=== PATIENT | female | born 1930 | race Two or more races ===

== ENCOUNTER 2019-12-16 09:01 | Emergency (ER) | payer OTHER ==
[~2019-12-16] VITALS: Ht 182.9 cm; Wt 60.3 kg
[2019-12-16] MEDS ORDERED: ATORVASTATIN CA40 MG (09:27)
[2019-12-16] MEDS ORDERED: LOTREL 10-40 M1 EACH (09:27)
[2019-12-16] MEDS ORDERED: HYDROCHLOROTH12.5 MG (09:29)
[2019-12-16] MEDS ORDERED: SYNTHROID50 MCG (09:29)
== END 2019-12-16 13:03 | disposition home or self-care (01) ==
LOC: ER 09:01
DX: K21.9 Gastro-esophageal reflux disease without esophagitis (principal)